=== PATIENT | male | born 1970 | race Caucasian/White ===

== ENCOUNTER 2018-07-21 17:37 | Emergency (ER) | payer OTHER ==
[2018-07-21 17:47] VITALS: BP 147/97; PULSE 89; TEMP 98; BMI 38.4
--- NOTE | 2018-07-21 17:47 | PDOC ---
Rapid Medical Evaluation Chief Complaint: Revisit,Radiology Variance Time Seen by Provider: 07/21/18 17:44 Medical Evaluation: Allergies Allergy/AdvReac Type Severity Reaction Status Date / Time No Known Drug Allergies Allergy Verified 07/21/18 17:43 07/21/18 17:44 Pt presents for evaluation for abnormal US findings of the liver. He unsure of the finding. Denies pain. States he had elevated liver enzymes Exam: abdomen SNTND Orders: US, labs Pt to proceed to the ED for further evaluation Discharge Disposition - Diagnosis Elevated liver enzymes - Referrals - Patient Instructions - Post Discharge Activity
[2018-07-21 18:37] LABS: BASO % 0.4 % (0-2.0); EOS % 0.5 % (0-4.5); HEMATOCRIT 48.5 % (35.4-49); HEMOGLOBIN 15.9 GM/dL (11.7-16.9); LYMPH % 21.6 % (8-40); MCH 27.9 pg (25.7-33.7); MCHC 32.8 g/dl (32.0-35.9); MEAN CELL VOLUME 84.9 fl (80-96); MEAN PLT VOLUME 9.5 fl (7.5-11.1); MONO % 6.7 % (3.8-10.2); NEUT % 70.8 % (42.8-82.8); PLATELET COUNT 158 K/MM3 (134-434); RBC 5.71 M/mm3 (4.00-5.60); WHITE BLOOD COUNT 6.5 K/mm3 (4.0-10.0)
[2018-07-21 19:02] LABS: INR 0.99 (0.83-1.09); PROTHROMBIN TIME (PATIENT) 11.7 SEC (9.7-13.0)
[2018-07-21 19:10] LABS: ALBUMIN 4.7 g/dl (3.4-5.0); ALK PHOS 109 U/L (45-117); ANION GAP 8 MMOL/L (8-16); BILIRUBIN,TOTAL 0.8 mg/dL (0.2-1); BLOOD UREA NITROGEN 13 mg/dL (7-18); CHLORIDE 100 mmol/L (98-107); CO2 28 mmol/L (21-32); CREATININE 0.8 mg/dL (0.55-1.3); GLUCOSE,RANDOM 171 mg/dL (74-106); POTASSIUM 3.9 mmol/L (3.5-5.1); SGOT/AST 25 U/L (15-37); SGPT/ALT 72 U/L (13-61); SODIUM 137 mmol/L (136-145); TOT PROT 7.6 g/dl (6.4-8.2)
--- NOTE | 2018-07-21 19:48 | PDOC ---
Attending Attestation - HPI HPI: 07/21/18 19:52 The patient is a 47 year old male with no past medical history here today from his PCPs office after abdominal ultrasound. Patient is new to current PCP and was getting a full work up. Patients PCP sent the patient in after seeing a possible abdominal aortic aneurysm on ultrasound. Patient denies headache, lightheadedness. Denies fever, chills. Denies chest pain, shortness of breath. Denies nausea, vomiting, diarrhea, abdominal pain. Allergies: NKDA PCP: Kourtney Scott 07/21/18 20:00 - Physicial Exam PE: 07/21/18 20:01 Constitutional: Awake, alert, oriented. No acute distress. Mildly obese. Head: Normocephalic. Atraumatic Eyes: PERRL. EOMI. Conjunctivae are not pale. ENT: Mucous membranes are moist and intact. Posterior pharynx without exudates or erythema. Uvula midline. Neck: Supple. Full ROM. No lymphadenopathy. Cardiovascular: Regular rate. Regular rhythm. S1, S2 regular. Distal pulses are 2+ and symmetric. Pulmonary/Chest: No evidence of respiratory distress. Clear to auscultation bilaterally No wheezing, rales or rhonchi. Abdominal: Soft and non-distended. There is no tenderness. No rebound, guarding or rigidity. No organomegaly. No palpable masses. Good bowel sounds. Back: No CVA tenderness. Musculoskeletal: No edema. No cyanosis. No clubbing. Full range of motion in all extremities. No calf tenderness. Radial/pedal pulses are intact and 2+ bilaterally Skin: Skin is warm and dry. No petechiae. No purpura. Neurological: Alert and oriented to person, place, and time. Cranial nerves II -XII are grossly intact. Normal speech. Strength is grossly symmetric. No sensory deficits. Psychiatric: Good eye contact. Normal interaction, affect and behavior. <Jovi Schmitt - Last Filed: 07/21/18 20:00> - Resident Resident Name: Dewayne Goyal - ED Attending Attestation I have performed the following: I have examined & evaluated the patient, The case was reviewed & discussed with the resident, I agree w/resident's findings & plan, Exceptions are as noted - Medical Decision Making 07/21/18 19:48 I, Dr. Aubrie Miles, DO, attest that this document has been prepared under my direction and personally reviewed by me in its entirety. I further attest, that it accurately reflects all work, treatment, procedures and medical decision -making performed by me. 07/21/18 19:58 47yo male with hx of htn and dm with a possible incidental finding of a AAA on ultrasound in Dr. Medel office today -pt sent for further imaging and r/o aaa vs dissection -no abd pain, no cp -no leg pain, no paresthesias -no palpable mass felt on exam -abd is soft, nt -labs sent from [facility] were reviewed -will order cta c/a/p to eval aorta -if negative will dc to home 07/21/18 21:45 no acute findings on ct for dissection or aaa adrenal hyperplasia vs adenoma on ct- will need follow up as an outpt given copy of ct results to take to his PMD denies abd pain or cp stable for dc to home <Aubrie Miles - Last Filed: 07/21/18 21:46> Attestations - Attestations 07/21/18 19:52 Documentation prepared by TI Martins, acting as medical research scientist for Aubrie Miles DO. <Jovi Schmitt - Last Filed: 07/21/18 20:00>
[2018-07-21] MEDS ORDERED: SODIUM CHLORIDE 0.9% 1000 ML INFUS.BAG IV ONE (20:52)
--- NOTE | 2018-07-21 21:49 | PDOC ---
History of Present Illness - General Chief Complaint: Revisit,Radiology Variance Stated Complaint: SENT BY PCP Time Seen by Provider: 07/21/18 17:44 History Source: Patient Exam Limitations: No Limitations - History of Present Illness Initial Comments: HPI: 47 y/o male presenting to [facility] ER on referral from Sudha FRANCISCO for further evaluation of possible aortic dissection noted incidentally on clinic ultrasound. No documentation provided from office indicating location of concern. Pt denies any active complaints. Establishing care are new office. Family Hx: - No h/o of aortic dissection or aneurysms PCP: Dr. Sonia Juarez Hx: - Nonsmoker - Nondrinker - Street drugs: denies Medical Hx: - HTN - Diabetes, managed with metformin - Obesity Past History - Past Medical History Allergies/Adverse Reactions: Allergies Allergy/AdvReac Type Severity Reaction Status Date / Time No Known Drug Allergies Allergy Verified 07/21/18 17:43 Home Medications: Ambulatory Orders Acetaminophen [Tylenol .Regular Strength -] 650 mg PO Q4H PRN 08/30/13 Clotrimazole/Betamet Diprop [Clotrimazole-Betamethasone Crm] 45 gm TP BID Tobramycin 0.3% Ophth Soln [Tobrex Ophthalmic Solution -] 2 drop OD Q6HPO #1 drops 10/14/14 Anemia: No Asthma: No Cancer: No Cardiac Disorders: No CVA: No COPD: No CHF: No Dementia: No Diabetes: Yes GI Disorders: Yes (H/O ULCER.) Disorders: No HTN: Yes (H/O..NO LONGER MEDICATED OF 10/14/14) Hypercholesterolemia: Yes Liver Disease: No Seizures: No Thyroid Disease: No - Surgical History Abdominal Surgery: No Appendectomy: No Cardiac Surgery: No Cholecystectomy: No Lung Surgery: No Neurologic Surgery: No Orthopedic Surgery: Yes - Immunization History Immunization Up to Date: Yes - Suicide/Smoking/Psychosocial Hx Smoking Status: No Smoking History: Current every day smoker Have you smoked in the past 12 months: No Number of Cigarettes Smoked Daily: 0 Information on smoking cessation initiated: No Hx Alcohol Use: No Drug/Substance Use Hx: No Substance Use Type: None Hx Substance Use Treatment: No Review of Systems - Review of Systems Able to Perform ROS?: Yes Comments:: In addition to that documented in the HPI above, the additional ROS was obtained : Constitutional: Denies fevers or chills Head: Denies vision changes ENMT: Denies sore throat CV: Denies chest pain Resp: Denies SOB GI: Denies vomiting or diarrhea : Denies painful urination MSK: Denies recent trauma Skin: Denies new rashes Neuro: Denies new numbness or tingling or weakness Endocrine: Denies polyuria Heme: Denies bleeding or bruising *Physical Exam - Vital Signs Last Vital Signs Temp Pulse Resp BP Pulse Ox 98 F 89 18 147/97 97 07/21/18 17:43 07/21/18 17:43 07/21/18 17:43 07/21/18 17:43 07/21/18 17:43 - Physical Exam Comments: Constitutional: Well-developed, well-nourished adult male in no acute distress or obvious discomfort. Obese body habitus. Found semi-fowlers on hospital bed. Alert and oriented x4. Answered all questions appropriately and completely. Speech was non-labored, non-pressured. Head: Normocephalic. No obvious external signs of trauma. Eyes: Sclerae white. Ears: Hearing grossly intact. Nose: No nasal discharge. Neck: Supple, trachea is midline. Cardiovascular / Chest: Regular rate and regular rhythm. No murmur, rubs, clicks, or gallops. Peripheral pulses: radial pulses full. Respiratory: Breathing unlabored. Equal chest rise and fall. Clear to auscultation bilaterally. No stridor, no wheezing, no rhonchi. Gastrointestinal: abdomen is soft, non-tender, non-distended. Exam limited secondary to body habitus. No hepatosplenomegaly. No pulsatile masses. No overlying skin lesions or obvious signs of trauma. Normoactive bowel sounds. No bruits auscultated over epigastric region or in any quadrant. Neuro: Alert and oriented. Moving all four extremities spontaneously. Skin: Warm, dry, and intact. Psych: Affect: appropriate. Mood: normal. ED Treatment Course - LABORATORY CBC & Chemistry Diagram: 07/21/18 18:04 07/21/18 18:04 - ADDITIONAL ORDERS Additional order review: Laboratory Results 07/21/18 07/21/18 07/21/18 18:04 18:04 18:04 PT with INR 11.70 INR 0.99 Sodium 137 Potassium 3.9 Chloride 100 Carbon Dioxide 28 Anion Gap 8 BUN 13 Creatinine 0.8 Creat Clearance w eGFR 103.18 Random Glucose 171 H Calcium 9.0 Total Bilirubin 0.8 AST 25 ALT 72 H Alkaline Phosphatase 109 Total Protein 7.6 Albumin 4.7 Blood Type B POSITIVE Antibody Screen Negative 07/21/18 18:04 RBC 5.71 H MCV 84.9 MCHC 32.8 RDW 14.0 MPV 9.5 Neutrophils % 70.8 Lymphocytes % 21.6 Monocytes % 6.7 Eosinophils % 0.5 Basophils % 0.4 - RADIOLOGY Radiology Studies Ordered: Category Date Time Status ABDOMEN CTA W/WO CONTRAST [CT] Stat CT Scan 07/21/18 20:06 Completed CHEST CTA [CT] Stat CT Scan 07/21/18 19:27 Completed - Medications Given in the ED: ED Medications Discontinued Medications Generic Name Dose Route Start Last Admin Trade Name Freq PRN Reason Stop Dose Admin Sodium Chloride 1,000 ml 07/21/18 20:52 07/21/18 21:11 Normal Saline - IV 07/21/18 20:53 1,000 ml ONCE ONE Administration Medical Decision Making - Medical Decision Making *Reviewed vital signs, nursing notes, and prior visit documentation (if available). 47 y/o male without chief complaint presenting from PCP clinic with concern for possible aortic dissection noted on U/S. No formal report or documentation indicated area of complaint. No personal or familial h/o of aortic pathology. Nonsmoker. Vitals unremarkable for severe hypertension or tachycardia. Physical exam as documented above. Low suspicion for aortic dissection. Will order CTA of chest, abdomen, and pelvis to further evaluate. Labs ordered by RME. CTA unremarkable for acute aortic pathology. Report indicated two areas of suboptimal imaging. Will not order further imaging given pts lack of symptoms. Ordered IVFB post contrast. Also encouraged pt to increased PO intake. Referred pt to Dr. Vazquez for further vascular workup. Imaging also revealed possible bilateral adrenal adenomas. Placed referral for Dr. Mosqueda for endocrine follow up. CMP revealed mild elevation in ALT. Suspect secondary to statin therapy. Referred pt back to PCP for further evaluation. Discussed imaging and laboratory results with pt. Answered all questions. Provided return precautions. Pt expressed verbal understanding and agreement with plan to discharge home with outpatient follow up. *DC/Admit/Observation/Transfer Diagnosis at time of Disposition: Elevated liver enzymes, Screening for abdominal aortic aneurysm (AAA) performed - Discharge Dispostion Disposition: HOME Condition at time of disposition: Good Decision to Admit order: No - Referrals Referrals: Kourtney Scott MD [Primary Care Provider] - Franklin Mosqueda MD [Staff Physician] - Cristian Vazquez MD [Non Staff, Medical] - - Patient Instructions Additional Instructions: You were seen today for evaluation of your abdominal aorta after a possible dissection was noted on clinical ultrasound. The CTA of your abdomen does not show any concerning aortic pathology. It did show small changes to a part of both of your right and left kidneys. Your blood work showed a slight elevation in on of your liver enzymes. You should follow up with your primary care doctor to have this lab repeated. I have placed a referral for you to follow up with Dr. Vazquez, a vascular surgeon. You will need to call to make an appointment. The number is included in this packet. A copy of todays results are attached to this packet. Take it to the appointment so your doctor can review them. I have also placed a referral for you to follow up with Dr. Mosqueda, an public relations coordinator. You will need to call to make an appointment. The number is included in this packet. A copy of todays results are attached to this packet. Take it to the appointment so your doctor can review them. You can also follow up with your primary care doctor for further recommendations and referrals. Go to the nearest emergency department if your condition worsens or you feel like you need additional emergency evaluation. Print Language: ICELANDIC - Post Discharge Activity Forms/Work/School Notes: Back to Work
== END 2018-07-21 22:14 | disposition home or self-care (01) ==
LOC: JER 17:37
PROC: 3E0337Z Introduction of Electrolytic and Water Balance Substance into Peripheral Vein, Percutaneous Approach (ICD-10-PCS; principal; 2018-07-21)
DX: R79.89 Other specified abnormal findings of blood chemistry (principal); Z13.89 Encounter for screening for other disorder; I10 Essential (primary) hypertension; E11.9 Type 2 diabetes mellitus without complications; E66.9 Obesity, unspecified
CPT/HCPCS: 36415; 71275-TC; 74175-TC; 80053; 85025; 85610; 86850; 86900; 86901; 99283-25; J7030